=== PATIENT | male | born 1965 | race Caucasian/White ===

== ENCOUNTER 2019-08-06 18:46 | Emergency (ER) | payer OTHER ==
[~2019-08-06] VITALS: Ht 185.4 cm; Wt 104.3 kg
[2019-08-06 18:49] VITALS: BP 108/80
--- NOTE | 2019-08-06 18:49 | NUR ---
BENI FARIAS ALS TO ER BED 03
--- NOTE | 2019-08-06 19:24 | NUR ---
Dr. Devries examining patient.
--- NOTE | 2019-08-06 19:46 | NUR ---
PATIENT ALERT AND ORIENTED, BREATHING EVEN AND UNLABORED, WILL CONTINUE TO MONITOR.
[2019-08-06] MEDS ORDERED: levETIRAcetam 1,000 MG in NACL 0.9% 100 ML IV ONE (19:55)
[2019-08-06] MEDS ORDERED: NACL 0.9% 1,000 ML IV ONE (19:55)
[2019-08-06] MEDS ORDERED: PROCHLORPERAZINE 10 MG/2 ML VIAL IVP ONE (19:55)
[2019-08-06] MEDS ORDERED: diphenhydrAMINE 50 MG/ML VIAL IVP ONE (19:55)
[2019-08-06] MEDS ORDERED: MORPHINE SULFATE 2 MG/ML SYR IVP ONE (19:55)
--- NOTE | 2019-08-06 20:42 | NUR ---
PT TAKEN TO CT
[2019-08-06] MEDS ORDERED: levETIRAcetam 100 MG/ML VIAL IV ONE (20:44)
--- NOTE | 2019-08-06 21:02 | NUR ---
PT RETURN FROM CT
[2019-08-06 21:29] LABS: BASOPHILS % (AUTO) 0.2 % (0.0-2.0); EOSINOPHILS % (AUTO) 0.1 % (0.0-4.0); HEMATOCRIT 40.1 % (36-52); HEMOGLOBIN 14.2 g/dL (12.0-18.0); LYMPHOCYTES # (AUTO) 1.3 K/uL (2.0-11.5); LYMPHOCYTES % (AUTO) 13.3 % (20.5-51.1); MEAN CORPUSCULAR HEMOGLOBIN 35 pg (27-31); MEAN CORPUSCULAR HGB CONC 36 g/dL (33-37); MEAN CORPUSCULAR VOLUME 99.2 fL (80-94); MONOCYTES # (AUTO) 0.8 K/uL (0.8-1.0); MONOCYTES % (AUTO) 8.2 % (1.7-9.3); NEUTROPHILS # (AUTO) 7.6 K/uL (1.8-7.7); NEUTROPHILS % (AUTO) 78.2 % (42.2-75.2); PLATELET COUNT (AUTO) 197 K/uL (140-450); RED BLOOD CELL COUNT(AUTO) 4.04 MIL/uL (4.20-6.10); RED CELL DISTRIBUTION WIDTH 12.6 % (11.6-13.7); WHITE BLOOD COUNT (AUTO) 9.7 K/uL (4.8-10.8)
[2019-08-06 21:47] LABS: PROTHROMBIN TIME 10.7 secs (10.8-13.4)
--- NOTE | 2019-08-06 22:28 | NUR ---
PATIENT RESTING WITH EYES CLOSED, BREATHING EVEN AND UNLABORED. AT BEDSIDE.
[2019-08-06 22:37] LABS: ANION GAP 14.1 (8-16); CARBON DIOXIDE 27.2 mmol/L (21-32); POTASSIUM 3.3 mmol/L (3.5-5.1)
[2019-08-06 22:38] LABS: CREATININE 1.1 mg/dL (0.7-1.3)
[2019-08-06 22:46] LABS: TOTAL BILIRUBIN 1.8 mg/dL (0.0-1.0)
[2019-08-06 22:47] LABS: ALBUMIN 3.8 g/dL (3.4-5.0)
--- NOTE | 2019-08-06 23:20 | NUR ---
Patient discharged with v/s stable. Written and verbal after care instructions ABOUT SEIZURES given and explained. Patient verbalized understanding. Wheel Chair Assisted with to car. All questions addressed prior to discharge. Advised to follow up with PMD.
[2019-08-06 23:30] VITALS: BP 126/70
--- NOTE | 2019-08-14 09:24 | NUR ---
Late entry. Confirmed with RN that Keppra IV completed at 2130
--- NOTE | 2019-08-14 09:25 | NUR ---
Late entry. Confirmed with RN that 0.9 NS IV completed at 2109
== END 2019-08-06 23:20 | disposition home or self-care (01) ==
LOC: MED 18:46
DX: R56.9 Unspecified convulsions (principal); R11.2 Nausea with vomiting, unspecified; R50.9 Fever, unspecified; I10 Essential (primary) hypertension; Z98.890 Other specified postprocedural states
CPT/HCPCS: 36415; 70450; 80053; 85025; 85610; 85730; 96361; 96365; 96375; 99284; J0780; J1200; J1953; J2270; J7030; 96374